=== PATIENT | female | born 2000 | race Asian ===

== ENCOUNTER 2021-07-09 11:12 | Emergency (ER) | payer OTHER ==
[~2021-07-09] VITALS: Ht 160 cm; Wt 95.7 kg
[2021-07-09 11:22] VITALS: BP 124/94
== END 2021-07-09 13:03 | disposition home or self-care (01) ==
LOC: ED 12:58
DX: Z20.822 Contact with and (suspected) exposure to COVID-19 (principal)
CPT/HCPCS: 99283; U0003; U0005